=== PATIENT | male | born 1945 | race Caucasian/White ===

== ENCOUNTER 2016-09-14 08:15 | Day surgery (SDC) | payer MEDICARE, BC ==
[~2016-09-14 08:15] MED LIST: ACETAMINOPHEN 325 MG TABLET PO PRN; ACETYLCHOLINE CHLORIDE 20 DROP KIT IO PRN; BUPIVACAINE HCL/PF 30 ML VIAL IJ PRN; CYCLOPENTOLATE HCL 20 DROP BTL LEFTEYE PRN; DEXTROSE 5%-0.5 NORMAL SALINE 1,000 ML IV PRN; EPINEPHrine 1 MG/ML AMPUL IO PRN; HYALURONATE SODIUM 0.4 ML DISP.SYRIN IO PRN; HYALURONATE SODIUM 0.85 ML DISP.SYRIN IO PRN; LIDOCAINE HCL/PF 200 MG/5 ML AMPUL TP PRN; LIDOCAINE HCL/PF 5 ML VIAL IO PRN; NORMAL SALINE 3 ML BOX IV PRN; TETRACAINE HCL 150 DROP BTL OP PRN
[2016-09-14] MEDS: TROPICAMIDE 150 DROP BTL LEFTEYE PRN ×3 (08:54→09:18)
[2016-09-14] MEDS: PHENYLEPHRINE HCL 50 DROP BTL LEFTEYE PRN ×3 (08:54→09:18)
[2016-09-14 11:01] VITALS: BP 167/72
== END 2016-09-14 08:16 | disposition home or self-care (01) ==
LOC: AMB 08:15
PROVIDERS: ATTEND Ophthalmology
PROC: 08RK3JZ Replacement of Left Lens with Synthetic Substitute, Percutaneous Approach (ICD-10-PCS; principal; 2016-09-14 09:30)
DX: H26.9 Unspecified cataract (principal); I10 Essential (primary) hypertension; E78.5 Hyperlipidemia, unspecified; Z87.891 Personal history of nicotine dependence; Z68.29 Body mass index [BMI] 29.0-29.9, adult